=== PATIENT | female | born 2000 | race African-American/Black ===

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

== ENCOUNTER 2020-01-10 19:40 | Emergency (ER) | payer MEDICAID ==
[~2020-01-10] VITALS: Ht 152.4 cm; Wt 56.7 kg
[2020-01-10 19:46] VITALS: Ht 152.4 cm; Wt 56.7 kg
[2020-01-10 20:06] LABS: BASOPHILS 0.2 % (0-2); EOSINOPHILS 1.4 % (0-7); HEMATOCRIT 42.6 % (36.0-48.0); HEMOGLOBIN 13.9 g/dL (12-16); IMMATURE GRANULOCYTES 0.1 % (0-5); LYMPHOCYTES 32.5 % (15-50); MCH 31.5 pg (26.0-34.0); MCHC 32.6 g/dL (31.0-37.0); MCV 96.6 fL (80.0-100.0); MONOCYTES 4.7 % (2-11); NEUTROPHILS 61.1 % (40-80); PLATELET COUNT 254 10x3/uL (130-400); RBC 4.41 10x6/uL (4.00-5.40); RDW 12.7 % (11.5-14.5); WBC 9.2 10x3/uL (4.8-10.8)
[2020-01-10 20:13] LABS: BILIRUBIN NEGATIVE (NEGATIVE); GLUCOSE NEGATIVE (NEGATIVE); HCG URINE NEGATIVE (NEGATIVE); KETONE NEGATIVE (NEGATIVE); NITRITE NEGATIVE (NEGATIVE); RED CELLS - URINE >50 /hpf (0-5); SPECIFIC GRAVITY 1.005 (1.005-1.020); UROBILINOGEN NORMAL (NORMAL); WHITE CELLS - URINE 0-5 /hpf (NEGATIVE)
[2020-01-10 20:16] LABS: CALC OSMOLALITY 272 mosm/kg (275-300); CALCIUM 9.2 mg/dL (8.5-10.1); CARBON DIOXIDE 30.8 mmol/L (21.0-32.0); CHLORIDE - SERUM 102 mmol/L (98-107); GLUCOSE 91 mg/dL (74-106); POTASSIUM - SERUM 3.5 mmol/L (3.5-5.1); SODIUM 137 mmol/L (136-145); UREA NITROGEN 9 mg/dL (7-18); eGFR NON AFRICAN AMERICAN 76 mL/min (90-120)
[2020-01-10 20:22] LABS: ALBUMIN 4.3 g/dL (3.4-5.0); ALKALINE PHOSPHATASE 53 U/L (30-120); ALT (SGPT) 19 U/L (10-68); AMYLASE - SERUM 68 U/L (25-115); BILIRUBIN - TOTAL 0.88 mg/dL (0.2-1.3); LIPASE 169 U/L (73-393); PROTEIN - SERUM 7.9 g/dL (6.4-8.2)
--- NOTE | 2020-01-10 20:47 | NUR ---
PATIENT IN ER 8 FOR ABDOMINAL PAIN. NOT SUICIDIAL. SHE ATTEMPTED 2 YEARS AGO. SHE SAID, "THAT'S WHEN I WAS A KID AND I DON'T HAVE TIME FOR THAT NOW". 1-800 NUMBER GIVEN FOR FUTURE REFERENCE
[2020-01-10 20:49] VITALS: BP 124/55
[2020-01-10] MEDS ORDERED: NAPROSYN500 MG PO (21:24)
== END 2020-01-10 20:49 | disposition home or self-care (01) ==
LOC: D.ER 19:40
PROVIDERS: Emergency Medicine
DX: R10.12 Left upper quadrant pain (principal); R07.89 Other chest pain

== ENCOUNTER 2020-02-15 04:17 | Emergency (ER) | payer MEDICAID ==
[~2020-02-15] VITALS: Ht 152.4 cm; Wt 55.0 kg
[~2020-02-15 04:17] MED LIST changes: +NAPROSYN500 MG PO
[2020-02-15 04:21] VITALS: Ht 152.4 cm; Wt 55.0 kg
[2020-02-15] MEDS ORDERED: CYCLOBENZAPRINE10 MG PO (04:29)
[2020-02-15 04:59] LABS: HCG URINE NEGATIVE (NEGATIVE)
[2020-02-15 06:08] VITALS: BP 103/50
== END 2020-02-15 06:09 | disposition home or self-care (01) ==
LOC: D.ER 04:17
PROVIDERS: Family Medicine
DX: S09.90XA Unspecified injury of head, initial encounter (principal); S20.219A Contusion of unspecified front wall of thorax, initial encounter; S10.93XA Contusion of unspecified part of neck, initial encounter; W50.0XXA Accidental hit or strike by another person, initial encounter; Y93.9 Activity, unspecified; Y92.9 Unspecified place or not applicable; R51 Headache; M54.9 Dorsalgia, unspecified

== ENCOUNTER 2020-04-03 17:11 | Emergency (ER) | payer MEDICAID ==
[2020-02-15 04:21] VITALS: Ht 152.4 cm; Wt 58.5 kg
[~2020-04-03] VITALS: Ht 152.4 cm; Wt 58.5 kg
[~2020-04-03 17:11] MED LIST changes: +CYCLOBENZAPRINE10 MG PO
[2020-04-03] MEDS ORDERED: [UNRECOGNIZED DRUG - REMARK] (17:45)
[2020-04-03] MEDS ORDERED: NAPROSYN500 MG PO (19:31)
[2020-04-03 20:25] VITALS: BP 101/54
== END 2020-04-03 21:18 | disposition home or self-care (01) ==
LOC: D.ER 17:11
DX: S61.303A Unspecified open wound of left middle finger with damage to nail, initial encounter (principal)